=== PATIENT | female | born 1980 | race Two or more races ===

== ENCOUNTER → 2018-07-09 13:48 | Outpatient (CLI) | payer SELFPAY ==
[2018-07-09 16:51] LABS: Chlamydia Trachomatis by PCR Negative (Negative); Neisserai gonorrhoeae by PCR Negative (Negative); Probe Check PASS; Sample Adequacy Control PASS; Specimen Processing Control PASS
[2018-07-13 09:03] LABS: HPV Reflexed? NOT INDICATED
== END ==
PROVIDERS: Referring Provider Obstetrics & Gynecology; Visit Provider Obstetrics & Gynecology
DX: Z12.4 Encounter for screening for malignant neoplasm of cervix (principal); Z11.3 Encounter for screening for infections with a predominantly sexual mode of transmission; Z32.01 Encounter for pregnancy test, result positive
CPT/HCPCS: 87491; 87591; 88175; G0145

== ENCOUNTER → 2018-07-30 10:39 | Outpatient (CLI) | payer SELFPAY ==
[2018-07-30 11:04] LABS: Absolute Lymphocyte Count 1.77 X10^3/ul (0.83-4.51); Absolute Neutrophil Count 4.9 X10^3/uL (2.0-7.7); Basophil# 0.01 X10^3/uL; Basophil% 0.1 % (0-1); Eosinophil# 0.16 X10^3/uL; Eosinophils% 2.2 % (0-5); Hematocrit 39.3 % (37-47); Hemoglobin 12.6 g/dl (12.0-15.0); Lymphocyte # 1.77 X10^3/ul (4.0); Lymphocyte % 23.9 % (19-41); Mean Corp Hgb Conc 32.1 g/gl (32-36); Mean Corpuscular Hgb 28.3 pg (27.0-32.0); Mean Corpuscular Volume 88.3 fL (81-99); Monocyte# 0.55 X10^3/uL; Monocyte% 7.4 % (0-10); Neutrophil # 4.91 X10^3/uL (2.7-7.7); Neutrophil % 66.1 % (47-70); Platelet Count 230 K/mm3 (150-450); RBC Distribution Width CV 12.4 % (11.6-14.6); RBC Distribution Width SD 40.1 fl (35.1-43.9); Red Blood Count 4.45 M/mm3 (4.2-5.4); White Blood Count 7.4 K/mm3 (4.4-11.0)
[2018-07-30 11:06] LABS: Color, Urine Yellow (Yellow); Glucose, Dipstick Normal (Normal); Ketone-Dipstick Negative (Negative); Leukocyte Esterase-Dipstick Negative /ul (Negative); Nitrite-Dipstick Negative (Negative); Occult Blood-Urine Negative /ul (Negative); Protein-Dipstick Negative (Negative); Urine Bilirubin Dipstick Negative (Negative); Urine Clarity Clear (Clear); Urine Urobilinogen Normal (Normal)
[2018-07-30 11:09] LABS: POSITIVE COUNT NO; POSITIVE DIFFERENTIAL NO; POSITIVE MORPHOLOGY NO
[2018-07-30 11:19] LABS: Amphetamine Urine VISTA NEGATIVE (<1000 ng/mL); Barbiturate Urine VISTA NEGATIVE (< 200 ng/mL); Benzodiazepine Urine VISTA NEGATIVE (< 200 ng/mL); Cocaine Urine VISTA NEGATIVE (< 300 ng/mL); Ecstacy Urine VISTA NEGATIVE (< 500 ng/mL); Methadone Urine VISTA NEGATIVE (< 300 ng/mL); PCP Urine VISTA NEGATIVE (< 25 ng/mL); THC Urine VISTA NEGATIVE (< 50 ng/mL); Vista UDS pH Range 5
[2018-07-30 11:21] LABS: COTININE Drug Screen Negative (<200 ng/mL)
[2018-07-30 11:36] LABS: Thyroid Stim Hormone (TSH) 1.42 uIU/mL (0.358-3.74)
[2018-07-30 12:14] LABS: HIV - WCH Non-Reactive (Nonreactive); Rubella IgG 55.9 IU/mL
[2018-07-30 22:04] LABS: Prenatal RPR NONREACTIVE (NONREACTIVE)
[2018-07-31 19:39] LABS: HEPATITIS B SURFACE AG Negative (Negative); Hep C Antibodies <0.1 s/co ratio (0.0-0.9)
== END ==
PROVIDERS: Visit Provider Obstetrics & Gynecology
DX: Z34.82 Encounter for supervision of other normal pregnancy, second trimester (principal)
CPT/HCPCS: 36415; 80307; 81002; 84443; 85025; 86703; 86762; 86803; 87340

== ENCOUNTER → 2018-11-05 08:29 | Outpatient (CLI) | payer SELFPAY ==
[2018-11-05 10:48] LABS: Hematocrit 36.8 % (37-47); Hemoglobin 12.1 g/dl (12.0-15.0); Mean Corp Hgb Conc 32.9 g/gl (32-36); Mean Corpuscular Hgb 28.7 pg (27.0-32.0); Mean Corpuscular Volume 87.4 fL (81-99); Mean Platelet Vol. 10.4 fl (6.2-12.0); Platelet Count 209 K/mm3 (150-450); RBC Distribution Width CV 13.3 % (11.6-14.6); RBC Distribution Width SD 40.7 fl (35.1-43.9); Red Blood Count 4.21 M/mm3 (4.2-5.4); White Blood Count 7.6 K/mm3 (4.4-11.0)
[2018-11-05 10:49] LABS: Scan Indicated on CBC? Y/N NO
[2018-11-05 10:54] LABS: Glucose Challenge Gest 1H 50g 128 mg/dL (70-140)
== END ==
PROVIDERS: Visit Provider Obstetrics & Gynecology
DX: Z34.83 Encounter for supervision of other normal pregnancy, third trimester (principal)
CPT/HCPCS: 36415; 82950; 85027

== ENCOUNTER → 2018-12-16 11:13 | Outpatient (CLI) | payer SELFPAY | PROVIDERS: Visit Provider Obstetrics & Gynecology | DX: Z36.85 Encounter for antenatal screening for Streptococcus B (principal) | CPT/HCPCS: 87081 ==

== ENCOUNTER 2019-01-20 11:45 | Inpatient (IN) | payer SELFPAY ==
--- NOTE | 2019-01-20 07:14 | PCM.HPOB.BLA ---
History and Physical Date of Admission: 01/20/19 OB HISTORY AND PHYSICAL EXAMINATION History of this : 38 yo female Ab1 with EDC 01/12/2019 by 17 weeks 1 day Ultrasound, presents to Labor and Delivery for induction of labor at 1 1/7 wk EGA. care remarkable for 1.) PPH with one unit PRBC's tranfused after her first delivery 2.) AMA, declined testing 3.) Hx of a 16 week loss 4.) Formula feeding -- has bilateral breast implants 5.) FOB's first child Pertinent Past Medical History: none Allergies: No Known Allergies Medications: During - DHA 200 mg capsule Review of Systems: Non-contributory PHYSICAL EXAMINATION General Appearence: 38 yo female in no acute distress Vital Signs: AF, VSS Heart: RRR without rubs or gallops Lungs: CTA x 2 Breasts: deferred Abdomen: gravid Pelvis: Cervix: Presentation: cephalic Station: Fetus: Size: AGA Movement: present Heart: present Impression /Plan: Intrauterine . 41 1/7 wk induction of labor , postdates. Admit. Plan pitocin AROM. Watch progress, tolerance of labor.
[2019-01-20 12:18] VITALS: BMI 31.8
[2019-01-20] MEDS: Lactated Ringers 1,000 ML 50 ML IV ×2 (12:30→22:49)
[2019-01-20 12:43] LABS: Absolute Lymphocyte Count 1.56 X10^3/uL (0.83-4.51); Absolute Neutrophil Count 4.6 X10^3/uL (2.0-7.7); Basophil# 0.02 X10^3/uL; Basophil% 0.3 % (0-1); Eosinophil# 0.08 X10^3/uL; Eosinophils% 1.2 % (0-5); Hematocrit 38.4 % (37-47); Hemoglobin 12.9 g/dL (12.0-15.0); Lymphocyte # 1.56 X10^3/ul (4.0); Lymphocyte % 23.1 % (19-41); Mean Corp Hgb Conc 33.6 g/dL (32-36); Mean Corpuscular Hgb 29.8 pg (27.0-32.0); Mean Corpuscular Volume 88.7 fL (81-99); Mean Platelet Vol. 11.1 fl (6.2-12.0); Monocyte# 0.44 X10^3/uL; Monocyte% 6.5 % (0-10); NRBC Flagged by Analyzer 0 % (0-5); Neutrophil % 68.3 % (47-70); Platelet Count 166 K/mm3 (150-450); RBC Distribution Width CV 13.2 % (11.6-14.6); Red Blood Count 4.33 M/mm3 (4.2-5.4); White Blood Count 6.7 K/mm3 (4.4-11.0)
[2019-01-20] MEDS: Oxytocin 30 units/NS 500 ml 30 UNITS/500 ML IV.SOLN IV (12:50)
--- NOTE | 2019-01-20 19:35 | PCM.PN.BLA ---
Progress Note PROGRESS NOTE 41 06/22 induction. Feeling some crapming AVSS Pitocin at 10 mIU/min EFM 130-140 avg variability Accels. UCs q 1 1/2 - 2 1/2 mins CX 2/softer/75/-2 anterior. AROM. blood tinged fluid, with brn bloody show/cervical mucous A/P: 41 06/22 wk induction AROM. Continue Pitocin may elect pain med prn. Continue induction. EFM reassuring.
[2019-01-20] MEDS: Nalbuphine 10 MG/ML Ampul IV (20:00)
[2019-01-20] MEDS: 0.9% Saline Lock 10 ML Syringe IV ×2 (20:00→23:36)
[2019-01-20] MEDS: Lactated Ringers 1,000 ML 999 ML IV ×2 (21:08→23:13)
[2019-01-20] MEDS: fentaNYL-bupivacaine (epidural) 100 ML BAG EPIDURAL (22:27)
--- NOTE | 2019-01-20 23:18 | PCM.PN.BLA ---
Progress Note LABOR PROGRESS NOTE Epidural placed. AVSS pitocin at 12 mIU/min EFM:120-130s avg variability. Accels noted. Early decelerations, variables. UCs: 2- 4mins A/P: 41 1/7 - 41 2/7 induction postdates. Continue pitocin position changes Watch tolerance of labor.
[2019-01-20] MEDS: Ondansetron 4 MG/2 ML Vial IV (23:36)
[2019-01-21] MEDS: fentaNYL-bupivacaine (epidural) 100 ML BAG EPIDURAL (02:47)
--- NOTE | 2019-01-21 02:51 | PCM.PN.BLA ---
Progress Note LABOR PROGRES NOTE Complete and laboring down Pitocin induction/ AROM. AVSS Begin pushing. IFM with early decels, some variables. some lates. UCs q 2-4 mins A/PP: 41 + wks. induction.
--- NOTE | 2019-01-21 04:35 | PCM.PN.BLA ---
Progress Note LABOR PROGRESS NOTE Comfortable with epidural. epidural turned down AVSS Pitocin was at 12 mIU/min off. restarted at 6 mIU/min IFM: 130-140s avg variability accels. Some lates with pushing and some variables. Scalp stim noted. tolerated pushing also Back to 130-140s accels at rest and with Pitocin at 6 mIU/min UCs q 1-3 mins CX: complete +1 significant molding, caput noted. Narrow pelvis, but room posteriorly A/P: 41 2/7 wk induction. postdates. Amnioinfusion, rest, labor down. Inc pitocin per protocol. resume pushing in approx 1 hr. Consider vacuum assist prn.
[2019-01-21] MEDS: Amnioinfusion- 0.9% NS 1,000 ML IV.SOLN. INTRA-UTER (04:40)
[2019-01-21] MEDS: Oxytocin 30 units/NS 500 ml 30 UNITS/500 ML IV.SOLN 334 UNITS IV (07:58)
--- NOTE | 2019-01-21 08:04 | PCM.OPRPT ---
Vaginal Delivery Maternal Presentation: Medically Indicated Induction 41 1/7 to 41 2/7 wk EGA induction postdates Method of Induction: Pitocin, Amniotomy Amniotic Membrane Rupture Type: Artificial Amniotic Fluid Description: Clear Final SHYAM: 01/12/19 Final SHYAM Source: US <20 weeks Gestational age: 41 Weeks and 2 Days Date of Procedure: 01/21/19 Pre-Operative Diagnosis: 41 2/7 wk induction Post-Operative Diagnosis: same Surgery/ Procedure Performed: Spontaneous Vaginal Delivery Anesthesiologist: Julius Madsen MD Type of Anesthesia: Epidural Description of Procedure: of a dunbar viable male over intact perineum to lacerations. head delivered REBEKAH. No nuchal cord. Shoulders delivered easily. OP and nares bulb suctioned. Baby to maternal abdomen, Short cord. Cord clamped times two and cut. Ap 9/9. PP exam; 2nd deg posterior vaginal and perineal laceration. Repaired to hemostatic, intact under epidural with 3-0 Vicryl. No other lacerations noted. Placenta delivered by spont expulsion, expression. 3V normal appearing, intact with trailing membranes. EBL 150 cc Ray Alejandro counts correct times two Pt and tolerated delivery well. to recovery, stable condition. Presentation: Vertex, REBEKAH Placental Delivery Description: Spontaneous, Expressed Cord Vessel Description: 3 Vessels Cord Entanglement: None Drain: Laguerre to straight drain - blood tinged urine with complete and pushing Infant A gender: Male Episiotomy Description: None Laceration: Midline, Perineal Extension/lac, Vaginal Extension/lac, 2nd degree Medications given after delivery: IV Pitocin Complications: None
--- NOTE | 2019-01-21 08:08 | DCINST_ITS ---
Discharge Diet: No Restrictions Discharge Activity: May Shower, May Take a Tub Bath May resume sexual activity in: 4-6 weeks Additional Activity Instructions:: Nothing in the vagina for 4-6 weeks. You may return to work/school in 6 weeks. Additional Instructions: If you experience any of the following, contact your healthcare provider. * Bleeding that soaks a pad every hour for 2 hours * Fever 100.4 or higher * Unrelieved incision or abdominal pain * Swelling, redness, discharge or bleeding from your incision or episiotomy site * Your incision begins to separate * Problems urinating (including inability to urinate or burning while u rinating). * Visual changes * Severe headache * Flu-like symptoms * Pain or redness in one of both of your breasts * Pain, warmth, tenderness or swelling in your legs, especially the calf area * Frequent nausea and vomiting * Symptoms of depression or anxiety If you experience any of the following, call 911 or go to the nearest Emergency Room. * Chest pain * Problems breathing * Seizure activity * Partial or complete paralysis of a body part, slurred speech, weakness or drooping of the face, or a sudden inability to walk or hold your balance Allergies/Adverse Reactions: Allergies No Known Allergies Allergy (Verified 01/20/19 12:30) Medications to take at Discharge Vits [Prenatabs FA] 1 tab PO DAILY 01/20/19 Please Follow Up With: Airam Cullen MD - [phone] When: Call to make an appointment with your doctor in 6 weeks. Test Results: Test results from this visit will be discussed in further detail at your follow- up appointment, if applicable. Proposed Discharge Date: 01/23/19
--- NOTE | 2019-01-21 08:08 | PCM.DCVAG ---
Discharge Diet: No Restrictions Discharge Activity: May Shower, May Take a Tub Bath May resume sexual activity in: 4-6 weeks Additional Activity Instructions:: Nothing in the vagina for 4-6 weeks. You may return to work/school in 6 weeks. Additional Instructions: If you experience any of the following, contact your healthcare provider. Bleeding that soaks a pad every hour for 2 hours Fever 100.4 or higher Unrelieved incision or abdominal pain Swelling, redness, discharge or bleeding from your incision or episiotomy site Your incision begins to separate Problems urinating (including inability to urinate or burning while urinating). Visual changes Severe headache Flu-like symptoms Pain or redness in one of both of your breasts Pain, warmth, tenderness or swelling in your legs, especially the calf area Frequent nausea and vomiting Symptoms of depression or anxiety If you experience any of the following, call 911 or go to the nearest Emergency Room. Chest pain Problems breathing Seizure activity Partial or complete paralysis of a body part, slurred speech, weakness or drooping of the face, or a sudden inability to walk or hold your balance Allergies/Adverse Reactions: Allergies No Known Allergies Allergy (Verified 01/20/19 12:30) Medications to take at Discharge Vits [Prenatabs FA] 1 tab PO DAILY 01/20/19 Please Follow Up With: Airam Cullen MD - [phone] When: Call to make an appointment with your doctor in 6 weeks. Test Results: Test results from this visit will be discussed in further detail at your follow-up appointment, if applicable. Proposed Discharge Date: 01/23/19
[2019-01-21] MEDS: Oxytocin 30 units/NS 500 ml 30 UNITS/500 ML IV.SOLN 167 UNITS IV (08:28)
[2019-01-21 10:50] VITALS: BP 113/61; PULSE 108; RESP 18; TEMP 37.2
[2019-01-21 12:00] VITALS: BP 99/54; PULSE 103; RESP 18; TEMP 37.4
[2019-01-21] MEDS: Ibuprofen 600 MG Tablet PO (16:11)
[2019-01-21 16:14] VITALS: BP 105/56; PULSE 108; RESP 16; TEMP 37.4
[2019-01-21 18:15] VITALS: BP 118/64; PULSE 100; RESP 16; TEMP 37.1
[2019-01-21 20:39] VITALS: BP 103/76; PULSE 89; RESP 16; TEMP 37
[2019-01-21] MEDS: Acetaminophen 500 MG Tablet 1000 MG PO (20:46)
[2019-01-22 00:07] VITALS: BP 103/50; PULSE 96; RESP 16; TEMP 36.3
--- NOTE | 2019-01-22 00:08 | NURSING ---
pt asymptomatic with low BP 103/50
[2019-01-22 04:10] VITALS: BP 106/56; PULSE 90; RESP 16; TEMP 36.6
[2019-01-22 08:18] VITALS: BP 98/58; PULSE 83; RESP 16; TEMP 36.7; O2SAT 98
--- NOTE | 2019-01-22 08:35 | PCM.PN.OB ---
Subjective: PPD#1 Doing well and would like to go home later this afternoon. Bottle feeding Minimal pain and bleeding. No concerns voiced. - Physical Exam General: Alert, Oriented x3, Cooperative, No apparent distress HEENT: Atraumatic, EOMI Neck: Supple Abdomen: Soft - Fundus firm NT inferior to umbilicus Neurological: Cranial nerves II-XII grossly intact Psych/Mental Status: Normal Affect Vital Signs Temp Pulse Resp BP Pulse Ox 98.1 F 83 16 98/58 L 98 01/22/19 08:18 01/22/19 08:18 01/22/19 08:18 01/22/19 08:18 01/22/19 08:18 Oxygen Delivery Method Room Air Weight: 79 kg Body Mass Index (BMI) 31.8 Intake and Output for Last 24 Hours 01/20/19 01/21/19 01/22/19 23:59 23:59 23:59 Intake Total 3859 / 3859 Output Total 2400 / 2400 Balance 1459 / 1459 Medical Necessity - Tobacco Use Smoking Status: Former smoker Assessment/Plan PPD#1 Stable pp. Dischg home today per pt request if baby is released.
[2019-01-22 14:27] VITALS: BP 105/62; PULSE 74; RESP 18; TEMP 36.4; O2SAT 99
--- NOTE | 2019-01-27 13:06 | NURSING ---
Mother reports that her and baby are doing very well, baby has been to dr and everything was reported as being excellent. Mother denies problems or concerns. Was satisfied with her care.
== END 2019-01-22 15:15 | disposition home or self-care (01) | DRG 807 ==
PROVIDERS: Admitting Provider Obstetrics & Gynecology; Referring Provider Obstetrics & Gynecology; Visit Provider Obstetrics & Gynecology
DX: O48.0 Post-term pregnancy (principal); O70.1 Second degree perineal laceration during delivery; O76 Abnormality in fetal heart rate and rhythm complicating labor and delivery; O69.3XX0 Labor and delivery complicated by short cord, not applicable or unspecified; Z98.82 Breast implant status; Z87.891 Personal history of nicotine dependence; Z3A.41 41 weeks gestation of pregnancy; Z37.0 Single live birth
CPT/HCPCS: 59025; 59050; 85025; 86850; 86900; 99218; J7030; J7120; A4216; G0378; J2405